=== PATIENT | female | born 1930 | race Caucasian/White ===

== ENCOUNTER 2016-09-08 20:07 | Outpatient (CLI) ==
[2016-09-09 02:53] VITALS: BMI 20.4
== END 2016-09-08 20:08 | disposition home or self-care (01) ==
LOC: AMBL 20:07
PROVIDERS: ATTEND Emergency Medicine
DX: R50.9 Fever, unspecified (principal); R41.0 Disorientation, unspecified

== ENCOUNTER 2016-09-08 20:41 | Inpatient (IN) ==
[2016-09-08] MEDS ORDERED: MOTRIN PO STA (20:55)
--- NOTE | 2016-09-08 20:58 | ED.PDOC ---
General ED Provider: Dr. SCOTT PETERS Chief Complaint: Fever Stated Complaint: FEVER, COUGHING, CHANGE IN MENTAL STATUS, FAMILY IN THE ROOM WITH HER. Time Seen by Physician: 20:56 Mode of Arrival: Ambulance Information Source: Patient, Family, [facility], EMT Nursing and Triage Documentation Reviewed and Agree: Yes Miscellaneous Complaint Exam - Febrile Illness/Adult Complaint/Exam Symptoms Are: Still present Timing: Constant Episodes Lasting: Days Initial Severity: Moderate Current Severity: Severe Alleviating: Reports: None Associated Signs and Symptoms: Denies: Headache, Fluid intake, Short of air, Cough, Sore throat, Nausea, Vomiting, Chills, Diaphoresis, Dysuria, Arthralgia, Stiff neck, Myalgia, Rash, Altered mental status Pseudomonas Risk Factors: Reports: None Serious Bacterial Infection Risk Factors: Reports: None Current Antibiotic Use: No Related Surgical History: None Differential Diagnoses: Pneumonia, Pyelonephritis, Sepsis, Viremia Review of Systems - Review Of Systems Constitutional: Reports: Fever, Malaise Eyes: Reports: No symptoms Ears, Nose, Mouth, Throat: Reports: No symptoms Respiratory: Reports: No symptoms Cardiac: Reports: No symptoms GI: Reports: No symptoms : Reports: No symptoms Musculoskeletal: Reports: No symptoms Skin: Reports: No symptoms Neurological: Reports: Weakness Endocrine: Reports: No symptoms Hematologic/Lymphatic: Reports: No symptoms All Other Systems: Reviewed and Negative Past Medical History - Past Medical History Previously Healthy: No Endocrine: Reports: Hypothyroid Cardiovascular: Reports: None Respiratory: Reports: None Hematological: Reports: Anemia Gastrointestinal: Reports: PUD, GERD Genitourinary: Reports: None Neuro/Psych: Reports: CVA, Anxiety, Dementia Musculoskeletal: Reports: Arthritis Cancer: Reports: None Last Menstrual Period: NA - Surgical History General Surgical History: Reports: None - Family History Family History: Reports: None - Social History Smoking Status: Never smoker Hx Substance Use: No Alcohol Screening: None - Immunizations Tetanus Shot up to Date: No (UNKNOWN) Physical Exam - Physical Exam Appearance: Ill-appearing Ill-appearing: Moderate Eyes: EOMI, Conjunctiva clear ENT: Ears normal, Nose normal, Oropharynx normal Respiratory: Airway patent, Breath sounds clear, Breath sounds equal, Respirations nonlabored Cardiovascular: RRR, Pulses normal, No rub, No murmur GI/: Soft, Nontender, No masses, Bowel sounds normal, No Organomegaly Musculoskeletal: Normal strength, ROM intact, No edema, No calf tenderness Skin: Warm, Dry, Normal color Neurological: Alert, Disoriented Psychiatric: Affect appropriate, Mood appropriate Interpretation - Radiology Interpretation Radiology Interpretation By: Radiologist Radiology Results: Negative Exam Interpreted: CT Scan Critical Care Note - Critical Care Note Total Time (mins): 0 Course - Course Hematology/Chemistry: 09/08/16 21:00 09/08/16 21:00 Orders, Labs, Meds: Lab Review 09/08/16 09/08/16 09/08/16 21:00 21:05 21:30 WBC 12.06 H RBC 4.01 L Hgb 12.7 Hct 38.8 MCV 96.8 MCH 31.7 H MCHC 32.7 RDW Coeff of Roshan 13.0 Plt Count 124 L Immature Gran % (Auto) 0.2 Neut % (Auto) 78.4 Lymph % (Auto) 16.8 [place] % (Auto) 4.1 Eos % (Auto) 0.3 Baso % (Auto) 0.2 Immature Gran # (Auto) 0.0 Neut # 9.4 H Lymph # 2.0 [place] # 0.5 Eos # 0.0 Baso # 0.0 Sodium 142 Potassium 3.8 Chloride 109 H Carbon Dioxide 22 L Anion Gap 14.8 BUN 22 H Creatinine 1.05 Estimated GFR (MDRD) 50.00 BUN/Creatinine Ratio 20.95 Glucose 115 Lactic Acid 18.5 Calcium 8.7 Total Bilirubin 0.43 AST 31 ALT 19 Alkaline Phosphatase 14 L Total Protein 6.8 Albumin 3.5 Globulin 3.3 Albumin/Globulin Ratio 1.06 Procalcitonin 2.94 Urine Color Yellow Urine Clarity Clear Urine pH 5.5 Ur Specific [place] 1.015 Urine Protein Trace Urine Glucose (UA) Negative Urine Ketones Negative Urine Blood 2+ Urine Nitrite Positive Urine Bilirubin Negative Urine Urobilinogen 1.0 Ur Leukocyte Esterase Trace Urine Microscopic WBC 20-30 Ur Squamous Epith Cells Not present Urine Bacteria 4+ Influenza A (Rapid) Negative Influenza B (Rapid) Negative Orders Category Date Time Status Saline Lock [ED IV/MEDIPORT/POWERPORT] .ONCE EMERGENCY 09/08/16 20:50 Active BLOOD CULTURE Stat LAB 09/08/16 21:00 Received CBC W/ AUTO DIFF Stat LAB 09/08/16 21:00 Completed COMPREHENSIVE METABOLIC PANEL Stat LAB 09/08/16 21:00 Completed LACTIC ACID Stat LAB 09/08/16 21:00 Completed PROCALCITONIN Stat LAB 09/08/16 21:00 Completed RAPID FLU A/B Stat LAB 09/08/16 21:05 Completed URINALYSIS C & S IF INDICATED Stat LAB 09/08/16 21:30 Completed URINE CULTURE Stat LAB 09/08/16 21:30 Received 0.9 % Sodium Chloride [Saline Flush] MEDS 09/08/16 20:50 Ordered 1 syr IVF PRN PRN Ibuprofen [Motrin] MEDS 09/08/16 20:55 Discontinued 600 mg PO ONCE STA Imipenem/Cilastatin Sodium [Primaxin] 500 mg MEDS 09/08/16 21:54 Active 0.9 % Sodium Chloride [Sodium Chloride] 100 ml IV ONCE Sodium Chloride 0.9% [Sodium Chloride] 1,000 ml MEDS 09/08/16 22:00 Ordered IV 50 mls/hr CT CHEST W/O CONTRAST Stat RADS 09/08/16 20:[address] HEAD W/O CONTRAST Stat RADS 09/08/16 20:50 Completed Medications Generic Name Dose Route Start Last Admin Trade Name Freq PRN Reason Stop Dose Admin Imipenem/Cilastatin Sodium 500 100 mls @ 100 mls/hr 09/08/16 21:54 mg/ Sodium Chloride IV 09/08/16 22:53 ONCE STA Sodium Chloride 1,000 mls @ 50 mls/hr 09/08/16 22:00 Sodium Chloride IV .Q20H WALTER Sodium Chloride 1 syr 09/08/16 20:50 Saline Flush IVF PRN PRN To flush IV Discontinued Medications Generic Name Dose Route Start Last Admin Trade Name Freq PRN Reason Stop Dose Admin Ibuprofen 600 mg 09/08/16 20:55 09/08/16 22:04 Motrin PO 09/08/16 20:56 600 mg ONCE STA Administration Vital Signs: Temp Pulse Resp BP Pulse Ox 09/08/16 20:42 104 F H 98 H 28 H 108/45 L 95 Departure - Departure Time of Disposition: 22:14 Disposition: ADMITTED INPATIENT Discharge Problem: UTI (urinary tract infection) Qualifiers: Urinary tract infection type: acute cystitis Hematuria presence: with hematuria Qualifier Code: (N30.01) Acute cystitis with hematuria Altered mental state Qualifiers: Altered mental status type: disorientation Qualifier Code: (R41.0) Disorientation, unspecified Sepsis Qualifiers: Sepsis type: sepsis due to unspecified organism Qualifier Code: (A41.9) Sepsis , unspecified organism Instructions: Urinary Tract Infection in Women (ED) Condition: Stable Pt referred to PMD for follow-up: No Allergies/Adverse Reactions: Allergies NSAIDS (Non-Steroidal Anti-Inflamma Adverse Reaction (Verified 03/01/13 21:55) Home Medications: Ambulatory Orders Acetaminophen [Mapap] 650 mg PO Q4H PRN 03/01/13 Levothyroxine Sodium [Synthroid] 100 mcg PO DAILY 03/01/13 Lorazepam [Ativan] 0.5 mg PO DAILY 03/01/13 Lorazepam [Ativan] 1 mg PO BID 09/08/16 Magnesium Hydroxide [Milk of Magnesia] 30 ml PO Q72HR PRN 09/08/16 Disposition Discussed With: Family
[2016-09-08 21:12] LABS: BASOPHILS % (AUTO) 0.2 % (0.0-3.0); EOSINOPHILS % (AUTO) 0.3 % (0.0-7.0); HEMATOCRIT 38.8 % (37.0-47.0); HEMOGLOBIN 12.7 g/dl (12.0-16.0); IMMATURE GRANULOCYTE % (AUTO) 0.2 % (0.0-5.0); LYMPHOCYTES % (AUTO) 16.8 (10.0-50.0); MEAN CORPUSCULAR HEMOGLOBIN 31.7 pg (27.0-31.0); MEAN CORPUSCULAR HGB CONC 32.7 (31.8-35.4); MEAN CORPUSCULAR VOLUME 96.8 fl (81.0-99.0); MONOCYTES # (AUTO) 0.5 K/uL (0.4-2.0); MONOCYTES % (AUTO) 4.1 (0-10); NEUTROPHILS # (AUTO) 9.4 K/ul (2.0-6.9); NEUTROPHILS % (AUTO) 78.4; PLATELET COUNT 124 10^3/uL (140-440); RED BLOOD COUNT 4.01 10^6/ul (4.20-5.40); WHITE BLOOD COUNT 12.06 K/ul (4.6-10.2)
[2016-09-08 21:33] LABS: ALBUMIN 3.5 g/dL (3.4-5.0); ALBUMIN/GLOBULIN RATIO 1.06; ANION GAP 14.8; BILIRUBIN,TOTAL 0.43 mg/dL (0.00-1.20); BUN/CREATININE RATIO 20.95; CALCIUM 8.7 mg/dL (8.2-10.2); CREATININE 1.05 mg/dL (0.60-1.30); POTASSIUM 3.8 mmol/L (3.5-5.10); TOTAL PROTEIN 6.8 g/dL (5.8-8.1)
[2016-09-08 21:34] LABS: FLU INTERNAL QC INTERNAL QC VALID; RAPID FLU A NEGATIVE (NEGATIVE); RAPID FLU B NEGATIVE (NEGATIVE)
[2016-09-08 21:40] LABS: BILIRUBIN,URINE Negative (NEGATIVE); KETONES,URINE Negative (NEGATIVE); LEUKOCYTE ESTERASE ,URINE Trace (NEGATIVE); NITRITE,URINE Positive (NEGATIVE); PH,URINE 5.5 (5-9); PROTEIN,URINE Trace (NEGATIVE); URINE, BLOOD 2+ (NEGATIVE)
--- NOTE | 2016-09-08 21:44 | CT ---
Exam: CT of the chest without contrast History: Fever Technique: [address] of the chest without intravascular contrast FINDINGS: Granulomatous calcifications bilaterally. No infiltrative opacities, suspicious nodules or masses. Compressive atelectasis along the border of the large hiatus hernia. Atherosclerotic ca lcification of the aorta without aneurysm. No pathologic lymph node enlargement or abundance of med iastinum. No acute findings of the chest wall soft tissues or bony thorax. Large hiatus hernia is present with intrathoracic stomach. No acute findings of the upper abdomen. Impression: 1. Compressive atelectasis along the border of the large hiatus hernia. No evidence of pneumonitis .
--- NOTE | 2016-09-08 21:44 | CT ---
EXAM: CT scan brain without contrast HISTORY: Altered mental status COMPARISON: None. FINDINGS: Contiguous axial images obtained from the skull base to the convexities without contrast utilizing 5-mm collimation. Sagittal and coronal reconstructions were imaged and reviewed. The jn tricles and CSF spaces are prominent compatible with age appropriate atrophy. There is periventricu lar hypodensity noted compatible with chronic microvascular disease. Atherosclerotic changes are se en involving the bilateral cavernous internal carotid arteries. Mucoperiosteal thickening is seen i n the bilateral maxillary sinuses right greater than left. Several air cells are opacified in the e thmoid sinus. IMPRESSION: Age appropriate atrophy with chronic microvascular disease. Benign sinus disease.
[2016-09-08 21:46] LABS: ADD URINE MICROSCOPIC YES; BACTERIA,URINE 4+ (NOT PRESENT)
[2016-09-08] MEDS ORDERED: PRIMAXIN 500 MG in SODIUM CHLORIDE 100 ML IV STA (21:54)
[2016-09-08] MEDS ORDERED: SODIUM CHLORIDE 1,000 ML IV SCH (22:00)
[2016-09-08] MEDS ORDERED: TYLENOL PO PRN (22:14)
[2016-09-08] MEDS: SODIUM CHLORIDE 250 ML IV SCH ×2 (23:40→23:58)
[2016-09-09] MEDS ORDERED: SODIUM CHLORIDE 250 ML IV SCH (00:25)
[2016-09-09 02:53] VITALS: BMI 20.4
[2016-09-09] MEDS: SODIUM CHLORIDE 250 ML IV SCH ×3 (03:07→06:17)
[2016-09-09] MEDS ORDERED: PRIMAXIN 500 MG in SODIUM CHLORIDE 100 ML IV SCH (05:00)
[2016-09-09] MEDS: SYNTHROID PO SCH (05:31)
[2016-09-09 06:13] LABS: BASOPHILS % (AUTO) 0.2 % (0.0-3.0); EOSINOPHILS # (AUTO) 0.1 K/ul (0.0-0.7); EOSINOPHILS % (AUTO) 0.7 % (0.0-7.0); HEMATOCRIT 35.6 % (37.0-47.0); HEMOGLOBIN 11.7 g/dl (12.0-16.0); LYMPHOCYTES # (AUTO) 2.5 K/uL (0.60-3.4); LYMPHOCYTES % (AUTO) 14.8 (10.0-50.0); MEAN CORPUSCULAR HGB CONC 32.9 (31.8-35.4); MEAN CORPUSCULAR VOLUME 97.3 fl (81.0-99.0); MONOCYTES # (AUTO) 0.7 K/uL (0.4-2.0); MONOCYTES % (AUTO) 4.4 (0-10); NEUTROPHILS # (AUTO) 13.2 K/ul (2.0-6.9); NEUTROPHILS % (AUTO) 78.9; PLATELET COUNT 116 10^3/uL (140-440); RED BLOOD COUNT 3.66 10^6/ul (4.20-5.40); WHITE BLOOD COUNT 16.73 K/ul (4.6-10.2)
[2016-09-09 07:22] LABS: ALBUMIN 2.8 g/dL (3.4-5.0); ALBUMIN/GLOBULIN RATIO 0.97; ANION GAP 11.7; BILIRUBIN,TOTAL 0.53 mg/dL (0.00-1.20); BUN/CREATININE RATIO 21.42; CALCIUM 7.9 mg/dL (8.2-10.2); CREATININE 0.98 mg/dL (0.60-1.30); POTASSIUM 3.7 mmol/L (3.5-5.10); TOTAL PROTEIN 5.7 g/dL (5.8-8.1)
[2016-09-09 07:23] LABS: CREATINE KINASE MB 1.3 ng/ml (0.0-3.6); TROPONIN I 0.016 ng/ml (0.0000-0.4000)
[2016-09-09] MEDS: SODIUM CHLORIDE 1,000 ML IV SCH (07:53)
[2016-09-09] MEDS: ATIVAN PO SCH ×3 (09:00→20:03)
[2016-09-09] MEDS ORDERED: ATIVAN PO SCH (09:00)
[2016-09-09] MEDS ORDERED: SYNTHROID PO SCH (09:00)
[2016-09-09] MEDS: VANCOMYCIN 1 GM in SODIUM CHLORIDE 250 ML IV SCH (09:19)
--- NOTE | 2016-09-09 10:01 | PCM.PROG ---
Attending Provider: ATTENDING PROVIDER: Dr. SCOTT PETERS DATE OF SERVICE: 09/09/16 SUBJECTIVE: This 86 year old WHITE/ F was hospitalized 09/08/16. The patient is admitted with urosepsis and change in mental status from [facility]. She is on Primaxin IV, has been hypotensive all night. She had only 400 mL urine output. Now, she is more awake and alert, has baseline confusion from dementia. The patient's family is in the room. REVIEW OF SYSTEMS: CONSTITUTIONAL: No fever, no chills. ENDOCRINE: No weight loss or weight gain. HEENT: No sinus drainage, no sore throat. CVS: No angina symptoms. No CHF symptoms. No palpitations. No atypical chest pain for CAD. No shortness of breath. RESPIRATORY: No cough, no hemoptysis. GI: No melena. No abdominal pain. No nausea, no vomiting. : No hematuria. No polyuria. SKIN: No rash. No wounds. MUSCULOSKELETAL: No pain. COOLER OPERATOR: No blackout, no dizziness. No headache. No double vision. PSYCHIATRIC: Not anxious; no depression. No suicidal thoughts. No homicidal thoughts. PHYSICAL EXAMINATION: GENERAL: Cachetic appearing lady lying in bed in no distress. VITAL SIGNS: Temperature 97.8 F, Pulse 68, Respiratory Rate 20, BP 76/45, Pulse Ox 95% HEENT: Normocephalic, atraumatic. Mucosa is dry, pallor positive. NECK: No JVP, no carotid bruit. No lymphadenopathy. CARDIAC: S1, S2, no S3. No murmur, gallop or regurgitation. LUNGS: Decreased entry. Clear to auscultation. ABDOMEN: Soft, non-tender. Bowel sounds active. No rigidity, guarding or CVA tenderness. EXTREMITIES: No clubbing, cyanosis or edema. NEUROLOGIC: Awake, alert, not oriented. LYMPHATIC: No palpable lymph nodes SKIN: Not dry. Intact. MUSCULOSKELETAL: No joint swelling. LAB REVIEW: 09/09/16 05:50 09/09/16 05:50 09/09/16 05:50: WBC 16.73 H, RBC 3.66 L, Hgb 11.7 L, Hct 35.6 L, MCV 97.3, MCH 32.0 H, MCHC 32.9, RDW Coeff of Roshan 13.2, Plt Count 116 L, Immature Gran % (Auto ) 1.0, Neut % (Auto) 78.9, Lymph % (Auto) 14.8, [place] % (Auto) 4.4, Eos % (Auto) 0.7, Baso % (Auto) 0.2, Immature Gran # (Auto) 0.2, Neut # 13.2 H, Lymph # 2.5, [place] # 0.7, Eos # 0.1, Baso # 0.0, Sodium 144, Potassium 3.7, Chloride 114 H, Carbon Dioxide 22 L, Anion Gap 11.7, BUN 21 H, Creatinine 0.98, Estimated GFR ( MDRD) 54.00, BUN/Creatinine Ratio 21.42, Glucose 118 H, Calcium 7.9 L, Total Bilirubin 0.53, AST 26, ALT 15, Alkaline Phosphatase 13 L, Total Creatine Kinase 116, CK-MB (CK-2) 1.3, CK-MB (CK-2) % 1.43427, Troponin I 0.0160, Total Protein 5.7 L, Albumin 2.8 L, Globulin 2.9, Albumin/Globulin Ratio 0.97 ASSESSMENT: 1. Urosepsis 2. Septic shock 3. Anemia 4. Alzheimer's dementia 5. Hypertension 6. Dyslipidemia 7. History of GI bleed PLAN: 1. Vancomycin 1 gm IV 2. Increase IV fluids to 75 mL 3. Continue Primaxin Plan and coordination of the patient's care discussed in the presence of Blocking Machine Operator Second and nurse. CONDITION: Guarded SCRIBED BY: KERLINE ESTRELLA, Manager Msw scribed while in presence of service performed by Dr. SCOTT PETERS on 09/09/16 ([id number])
[2016-09-09 13:07] LABS: TROPONIN I 0.015 ng/ml (0.0000-0.4000)
[2016-09-09 13:08] LABS: CREATINE KINASE MB 1.7 ng/ml (0.0-3.6)
[2016-09-09] MEDS: PRIMAXIN 250 MG in SODIUM CHLORIDE 100 ML IV SCH ×2 (13:25→23:25)
[2016-09-10] MEDS: SODIUM CHLORIDE 1,000 ML IV SCH ×2 (02:45→23:19)
[2016-09-10] MEDS: PRIMAXIN 250 MG in SODIUM CHLORIDE 100 ML IV SCH ×3 (05:42→20:04)
[2016-09-10] MEDS: SYNTHROID PO SCH (05:42)
[2016-09-10 07:23] LABS: BASOPHILS % (AUTO) 0.1 % (0.0-3.0); EOSINOPHILS # (AUTO) 0.3 K/ul (0.0-0.7); EOSINOPHILS % (AUTO) 2.1 % (0.0-7.0); HEMATOCRIT 34.6 % (37.0-47.0); HEMOGLOBIN 11.4 g/dl (12.0-16.0); IMMATURE GRANULOCYTE % (AUTO) 0.3 % (0.0-5.0); LYMPHOCYTES # (AUTO) 3.5 K/uL (0.60-3.4); MEAN CORPUSCULAR HEMOGLOBIN 31.6 pg (27.0-31.0); MEAN CORPUSCULAR HGB CONC 32.9 (31.8-35.4); MEAN CORPUSCULAR VOLUME 95.8 fl (81.0-99.0); MONOCYTES # (AUTO) 0.8 K/uL (0.4-2.0); MONOCYTES % (AUTO) 5.8 (0-10); NEUTROPHILS # (AUTO) 9.8 K/ul (2.0-6.9); NEUTROPHILS % (AUTO) 67.7; PLATELET COUNT 121 10^3/uL (140-440); RED BLOOD COUNT 3.61 10^6/ul (4.20-5.40); WHITE BLOOD COUNT 14.47 K/ul (4.6-10.2)
[2016-09-10 07:51] LABS: ALBUMIN 2.8 g/dL (3.4-5.0); ALBUMIN/GLOBULIN RATIO 0.97; ANION GAP 9.7; BILIRUBIN,TOTAL 0.58 mg/dL (0.00-1.20); BUN/CREATININE RATIO 17.33; CALCIUM 8.2 mg/dL (8.2-10.2); CREATININE 0.75 mg/dL (0.60-1.30); POTASSIUM 3.7 mmol/L (3.5-5.10); TOTAL PROTEIN 5.7 g/dL (5.8-8.1)
[2016-09-10] MEDS: VANCOMYCIN 1 GM in SODIUM CHLORIDE 250 ML IV SCH (08:04)
[2016-09-10] MEDS: ATIVAN PO SCH ×3 (08:05→20:04)
[2016-09-10] MEDS: DUONEB NEB SCH ×2 (19:25→23:45)
[2016-09-11] MEDS: PRIMAXIN 250 MG in SODIUM CHLORIDE 100 ML IV SCH ×3 (04:01→20:21)
[2016-09-11] MEDS: DUONEB NEB SCH ×4 (04:53→23:33)
[2016-09-11 04:56] LABS: BASOPHILS % (AUTO) 0.2 % (0.0-3.0); EOSINOPHILS # (AUTO) 0.2 K/ul (0.0-0.7); EOSINOPHILS % (AUTO) 1.3 % (0.0-7.0); HEMATOCRIT 34.1 % (37.0-47.0); HEMOGLOBIN 11.3 g/dl (12.0-16.0); IMMATURE GRANULOCYTE % (AUTO) 0.5 % (0.0-5.0); LYMPHOCYTES # (AUTO) 2.7 K/uL (0.60-3.4); LYMPHOCYTES % (AUTO) 21.8 (10.0-50.0); MEAN CORPUSCULAR HEMOGLOBIN 31.7 pg (27.0-31.0); MEAN CORPUSCULAR HGB CONC 33.1 (31.8-35.4); MEAN CORPUSCULAR VOLUME 95.5 fl (81.0-99.0); MONOCYTES # (AUTO) 0.8 K/uL (0.4-2.0); MONOCYTES % (AUTO) 6.7 (0-10); NEUTROPHILS # (AUTO) 8.5 K/ul (2.0-6.9); NEUTROPHILS % (AUTO) 69.5; PLATELET COUNT 142 10^3/uL (140-440); RED BLOOD COUNT 3.57 10^6/ul (4.20-5.40); WHITE BLOOD COUNT 12.18 K/ul (4.6-10.2)
[2016-09-11 05:21] LABS: ALBUMIN 2.8 g/dL (3.4-5.0); ALBUMIN/GLOBULIN RATIO 0.9; ANION GAP 9.5; BILIRUBIN,TOTAL 0.62 mg/dL (0.00-1.20); BUN/CREATININE RATIO 19.48; CALCIUM 8.3 mg/dL (8.2-10.2); CREATININE 0.77 mg/dL (0.60-1.30); POTASSIUM 3.5 mmol/L (3.5-5.10); TOTAL PROTEIN 5.9 g/dL (5.8-8.1)
[2016-09-11] MEDS: SYNTHROID PO SCH (05:30)
[2016-09-11] MEDS: VANCOMYCIN 1 GM in SODIUM CHLORIDE 250 ML IV SCH (08:07)
[2016-09-11] MEDS: ATIVAN PO SCH ×3 (08:09→20:21)
[2016-09-11] MEDS ORDERED: KEFLEX PO STA (23:02)
[2016-09-12 04:56] LABS: BASOPHILS % (AUTO) 0.3 % (0.0-3.0); EOSINOPHILS # (AUTO) 0.2 K/ul (0.0-0.7); EOSINOPHILS % (AUTO) 1.8 % (0.0-7.0); HEMATOCRIT 35.3 % (37.0-47.0); HEMOGLOBIN 11.6 g/dl (12.0-16.0); IMMATURE GRANULOCYTE % (AUTO) 0.6 % (0.0-5.0); LYMPHOCYTES # (AUTO) 2.8 K/uL (0.60-3.4); LYMPHOCYTES % (AUTO) 26.9 (10.0-50.0); MEAN CORPUSCULAR HEMOGLOBIN 31.3 pg (27.0-31.0); MEAN CORPUSCULAR HGB CONC 32.9 (31.8-35.4); MEAN CORPUSCULAR VOLUME 95.1 fl (81.0-99.0); MONOCYTES # (AUTO) 0.9 K/uL (0.4-2.0); MONOCYTES % (AUTO) 9.1 (0-10); NEUTROPHILS # (AUTO) 6.3 K/ul (2.0-6.9); NEUTROPHILS % (AUTO) 61.3; PLATELET COUNT 171 10^3/uL (140-440); RED BLOOD COUNT 3.71 10^6/ul (4.20-5.40); WHITE BLOOD COUNT 10.33 K/ul (4.6-10.2)
[2016-09-12 05:20] LABS: ALBUMIN 2.9 g/dL (3.4-5.0); ALBUMIN/GLOBULIN RATIO 1.04; ANION GAP 11.6; BILIRUBIN,TOTAL 0.73 mg/dL (0.00-1.20); BUN/CREATININE RATIO 22.97; CALCIUM 8.7 mg/dL (8.2-10.2); CREATININE 0.74 mg/dL (0.60-1.30); POTASSIUM 3.6 mmol/L (3.5-5.10); TOTAL PROTEIN 5.7 g/dL (5.8-8.1)
[2016-09-12] MEDS: SYNTHROID PO SCH (05:48)
[2016-09-12] MEDS: DUONEB NEB SCH ×2 (05:55→11:18)
[2016-09-12 06:13] VITALS: BP 129/77; TEMP 97.8
[2016-09-12] MEDS: KEFLEX PO SCH ×2 (08:44→10:20)
[2016-09-12] MEDS: ATIVAN PO SCH ×2 (08:44→09:00)
--- NOTE | 2016-09-12 08:50 | CM.DICTOOL ---
ADMISSION: 09/08/16 22:35 DISCHARGE: 09/12/16 DISCHARGE TO [facility] DATE OF SERVICE: 09/12/16 FINAL DIAGNOSIS UROSEPSIS - (E-COLI) ACUTE MENTAL STATUS CHANGES FEVER/COUGH HYPOTHYROIDISM CVA ANXIETY ANEMIA GASTRIC ULCER GENERALIZED ARTHRITIS OSTEOARTHRITIS ALZHEIMER'S TYPE DEMENTIA NEVER SMOKER LAST VITALS Temp Pulse Resp BP Pulse Ox 97.8 F 69 16 129/77 95 09/12/16 06:00 09/12/16 06:00 09/12/16 06:00 09/12/16 06:00 09/12/16 06:00 ACTIVE MEDICATIONS Acetaminophen (Tylenol) 650 mg PO Q4H PRN PRN Reason: Mild Pain Levothyroxine Sodium (Synthroid) 100 mcg PO QDAC [facility] Last Admin: 09/12/16 05:48 Dose: 100 mcg Lorazepam (Ativan) 1 mg PO BID [facility] Last Admin: 09/11/16 20:21 Dose: 1 mg Lorazepam (Ativan) 0.5 mg PO BEDTIME [facility] Last Admin: 09/11/16 20:21 Dose: 0.5 mg Magnesium Hydroxide (Milk of Magnesia) 30 ml PO Q72H PRN Constipation ALLERGIES NSAIDS (Non-Steroidal Anti-Inflamma Adverse Reaction (Verified 03/01/13 21:55) NEW PRESCRIPTIONS: MACRODANTIN 100 MG PO BID X 7 (SEVEN) DAYS SMOKING: NONSMOKER LAB REVIEW: 09/12/16 04:44 09/12/16 04:44 09/12/16 04:44: WBC 10.33 H, RBC 3.71 L, Hgb 11.6 L, Hct 35.3 L, MCV 95.1, MCH 31.3 H, MCHC 32.9, RDW Coeff of Roshan 12.7, Plt Count 171, Immature Gran % (Auto) 0.6, Neut % (Auto) 61.3, Lymph % (Auto) 26.9, [place] % (Auto) 9.1, Eos % (Auto) 1.8, Baso % (Auto) 0.3, Immature Gran # (Auto) 0.1, Neut # 6.3, Lymph # 2.8, [place] # 0.9, Eos # 0.2, Baso # 0.0, Sodium 144, Potassium 3.6, Chloride 112 H, Carbon Dioxide 24, Anion Gap 11.6, BUN 17, Creatinine 0.74, Estimated GFR (MDRD ) 74.00, BUN/Creatinine Ratio 22.97, Glucose 94, Calcium 8.7, Total Bilirubin 0.73, AST 23, ALT 15, Alkaline Phosphatase 15 L, Total Protein 5.7 L, Albumin 2.9 L, Globulin 2.8, Albumin/Globulin Ratio 1.04 PLAN: DISCHARGE BACK TO [facility] TODAY DR. PETERS WILL FOLLOW THE PATIENT DURING USUAL DETENTION ROUNDS IN APPROX 1 WEEK RESUME PRIOR DETENTION MEDICATIONS NEW MEDICATIONS: MACRODANTIN 100 MG PO BID X 7 (SEVEN) DAYS DIET: [place], REGULAR TEXTURE AND REGULAR CONSISTENCE TOLERATED INSTRUMENTATION AND CONTROL TECHNICIAN PLEASE CONSULT TO PROVIDE OPTIMAL NUTRITIONAL NEEDS ACTIVITY: MAY PARTICIPATE IN DETENTION ACTIVITY PROGRAM TOLERATED PT/OT/SPEECH PLEASE EVALUATE AND TREAT INDICATED UP TO DINING ROOM FOR MEALS V/S DAILY CBC WITH DIFF AND CMP IN ONE WEEK, THEN Q 6 MONTHS TSH AND FREE T4 Q 6 MONTHS SUMMARY: THE PATIENT IS ALERT AND ORIENTED TO PERSON ONLY. SHE CURRENTLY RESIDES AT A LOCAL DETENTION, [facility]. SHE AND HER FAMILY DESIRE FOR HER TO RETURN THERE AT DISCHARGE. SHE IS ABLE TO FEED HERSELF, BUT REQUIRES ASSISTANCE FOR OTHER ADL'S. SHE IS INCONTINENT OF BOTH URINE AND STOOL. SHE HAS NO DECUBITUS ULCERS PRESENT AT DISCHARGE. HER HYDRATION STATUS IS IMPROVED FROM THE ADMISSION ASSESSMENT. BOTH THE PATIENT AND HER FAMILY ARE AWARE AND AGREEABLE FOR TODAY'S DISCHARGE PLANS. SCOTT PETERS M.D.
--- NOTE | 2016-09-12 12:51 | PCM.PROG ---
Attending Provider: ATTENDING PROVIDER: Dr. SCOTT PETERS DATE OF SERVICE: 09/12/16 SUBJECTIVE: This 86 year old WHITE/ F was hospitalized 09/08/16. The patient has been up and about walking and doing fine. No fever. Urine was positive for E. coli. The patient has some confusion from dementia which is stable. REVIEW OF SYSTEMS: CONSTITUTIONAL: No fever, no chills. ENDOCRINE: No weight loss or weight gain. HEENT: No sinus drainage, no sore throat. CVS: No angina symptoms. No CHF symptoms. No palpitations. No atypical chest pain for CAD. No shortness of breath. RESPIRATORY: No cough, no hemoptysis. GI: No melena. No abdominal pain. No nausea, no vomiting. : No hematuria. No polyuria. SKIN: No rash. No wounds. MUSCULOSKELETAL: No pain. MEAT GRADING MACHINE OPERATOR: No blackout, no dizziness. No headache. No double vision. PSYCHIATRIC: Not anxious; no depression. No suicidal thoughts. No homicidal thoughts. PHYSICAL EXAMINATION: GENERAL: Cachetic appearing but not in any distress. Lying in bed in no distress. VITAL SIGNS: Temperature 97.8 F, Pulse 69, Respiratory Rate 16, BP 129/77, Pulse Ox 95% HEENT: Normocephalic, atraumatic. Mucosa is dry, pallor positive. NECK: No JVP, no carotid bruit. No lymphadenopathy. CARDIAC: S1, S2, no S3. No murmur, gallop or regurgitation. LUNGS: Decreased entry. Clear to auscultation. ABDOMEN: Soft, non-tender. Bowel sounds active. No rigidity, guarding or CVA tenderness. EXTREMITIES: No clubbing, cyanosis or edema. NEUROLOGIC: Awake, alert with some confusion. LYMPHATIC: No palpable lymph nodes SKIN: Not dry. Intact. MUSCULOSKELETAL: No joint swelling. LAB REVIEW: 09/12/16 04:44 09/12/16 04:44 09/12/16 04:44: WBC 10.33 H, RBC 3.71 L, Hgb 11.6 L, Hct 35.3 L, MCV 95.1, MCH 31.3 H, MCHC 32.9, RDW Coeff of Roshan 12.7, Plt Count 171, Immature Gran % (Auto) 0.6, Neut % (Auto) 61.3, Lymph % (Auto) 26.9, [place] % (Auto) 9.1, Eos % (Auto) 1.8, Baso % (Auto) 0.3, Immature Gran # (Auto) 0.1, Neut # 6.3, Lymph # 2.8, [place] # 0.9, Eos # 0.2, Baso # 0.0, Sodium 144, Potassium 3.6, Chloride 112 H, Carbon Dioxide 24, Anion Gap 11.6, BUN 17, Creatinine 0.74, Estimated GFR (MDRD ) 74.00, BUN/Creatinine Ratio 22.97, Glucose 94, Calcium 8.7, Total Bilirubin 0.73, AST 23, ALT 15, Alkaline Phosphatase 15 L, Total Protein 5.7 L, Albumin 2.9 L, Globulin 2.8, Albumin/Globulin Ratio 1.04 ASSESSMENT: 1. Urosepsis, resolved, organism E. coli 2. Septic shock, resolved 3. Anemia 4. Alzheimer's dementia 5. Hypertension 6. Dyslipidemia 7. History of GI bleed PLAN: 1. Discharge to [place] under the care of Dr. Irwin 2. Increase hydration 3. Probiotics for one month 4. The patient may participate in [facility] activities 5. Resume medications 6. CBC, CMP in one week then every 3 months Plan and coordination of the patient's care discussed in the presence of Straight Knife Machine Cutter and nurse. CONDITION: Stable SCRIBED BY: KERLINE ESTRELLA, Construction Pit Worker scribed while in presence of service performed by Dr. SCOTT PETERS on 09/12/16 ([id number])
--- NOTE | 2016-09-13 14:12 | PN ---
DATE OF SERVICE: 09/10/16 SUBJECTIVE: This is an 86-year-old female admitted with urinary tract infection, change in mental status. The patient had a lot of questions and all questions were answered. REVIEW OF SYSTEMS: CONSTITUTIONAL: No fever, no chills. HEENT: Normal. ENDOCRINE: No weight gain, no weight loss. CVS: No angina symptoms. No CHF symptoms. No palpitations. No atypical chest pain for CAD. No shortness of breath. No PND, no orthopnea. RESPIRATORY: No cough, no hemoptysis. GI: No nausea, no vomiting. No abdominal pain. : No hematuria. No polyuria. MUSCULOSKELETAL:. No joint swelling. PSYCHIATRIC: Not anxious. No depression. No suicidal thoughts. No homicidal thoughts. SKIN: Intact. No rash. PHYSICAL EXAMINATION: V/S: BP 87/62, respiratory rate 20, heart rate 78, temperature 98.1. GENERAL: HEENT: Normocephalic, atraumatic. Mucosa dry. Pallor positive. No icterus. NECK: Supple. No JVD, no carotid bruit. No lymphadenopathy. LUNGS: Decreased and clear to auscultation. No rales or rhonchi. HEART: S1, S2 normal. No murmur, gallop or regurgitation. ABDOMEN: Soft, nontender. Bowel sounds active. No rigidity. No rebound or guarding. No CVA tenderness. EXTREMITIES: No clubbing, cyanosis or pedal edema. MUSCULOSKELETAL: No joint swelling. NEUROLOGIC: Awake, alert, oriented with confusion basline. No focal deficit. LYMPHATIC: No lymph nodes palpable. SKIN: Intact. LABS: White count 14.47, hemoglobin 11.4, hematocrit 34.6, platelet count 121. Sodium 144, potassium 3.7, chloride 115, bicarb 23, BUN 13, creatinine 0.75. ASSESSMENT: 1. URINARY TRACT INFECTION, E. COLI 2. CHANGE IN MENTAL STATUS 3. WORSENING OF CHANGE IN MENTAL STATUS SECONDARY TO UTI 4. HYPOTHYROIDISM 5. ANXIETY DISORDER 6. ALZHEIMER'S DEMENTIA PLAN: 1. Continue Primaxin 2. Duonebs 3. Vancomycin 4. IV fluids 5. Will follow with the patient in daily rounds ] TIME SPENT: More than 30 minutes MTDD
--- NOTE | 2016-09-14 13:04 | PN ---
DATE OF SERVICE: 09/11/16 SUBJECTIVE: The patient was admitted with the urosepsis and the lower lobe compressive atelectasis from the hiatal hernia. The patient has been doing fine. Because of her dementia the patient did have some deliriums and she pulled out the IV line two times otherwise she is sitting at the nurses station, more smiling but still has confusion. REVIEW OF SYSTEMS: CONSTITUTIONAL: No fever, no chills. HEENT: Normal. ENDOCRINE: No weight gain, no weight loss. CVS: No angina symptoms. No CHF symptoms. No palpitations. No atypical chest pain for CAD. No shortness of breath. No PND, no orthopnea. RESPIRATORY: No cough, no hemoptysis. GI: No nausea, no vomiting. No abdominal pain. : No hematuria. No polyuria. MUSCULOSKELETAL:. No joint swelling. PSYCHIATRIC: Not anxious. No depression. No suicidal thoughts. No homicidal thoughts. SKIN: Intact. No rash. PHYSICAL EXAMINATION: V/S: blood pressure 128/73, respiratory rate 16, heart rate 80 and temperature 98.4. HEENT: Normocephalic, atraumatic. Mucosa dry. Pallor positive. No icterus. NECK: Supple. No JVD, no carotid bruit. No lymphadenopathy. LUNGS: Bilateral entry is decreased and clear to auscultation. No rales or rhonchi. HEART: S1, S2 normal. No S3. No murmur, gallop or regurgitation. ABDOMEN: Soft, nontender. Bowel sounds active. No rigidity. No rebound or guarding. No CVA tenderness. EXTREMITIES: No clubbing, cyanosis or pedal edema. MUSCULOSKELETAL: No joint swelling. NEUROLOGIC: Awake, alert, not completely oriented to time, place and person. No focal deficit. LYMPHATIC: No lymph nodes palpable. SKIN: Intact. LABS: WBC 12.18, hgb 11.3, hct 34.1, plt count 142, sodium 141, potassium 3.5, chloride 112, bicarb 29, BUN 15 and creatinine 0.77. ASSESSMENT: 1. Urinary tract infection, e-coli 2. Segmental atelectasis per CAT scan 3. Hiatal hernia 4. Alzheimer's Dementia with delirium 5. History of CVA, no residual weakness 6. History of anemia with the peptic ulcer disease 7. Breast surgery for the cyst 8. Hysterectomy PLAN: 1. Stop the Vancomycin 2. Continue the Primaxin 3. Please get IV in again and continue the IV fluids 4. Out of bed to chair activity as tolerated. TIME SPENT: More than 30 minutes MTDD
--- NOTE | 2016-09-15 15:26 | DS ---
DATE OF SERVICE: 09/12/16 FINAL DIAGNOSIS: 1. URINARY TRACT INFECTION, ORGANISM E.COLI 2. ACUTE MENTAL STATUS CHANGE SECONDARY TO UROSEPSIS 3. HYPOTHYROIDISM 4. QUESTIONABLE COMPRESSIVE ATELECTASIS FROM THE HIATAL HERNIA PER CT SCAN 5. CEREBRAL VASCULAR ACCIDENT 6. ANXIETY 7. ANEMIA 8. HISTORY OF GASTRIC ULCER 9. GENERALIZED ARTHRITIS 10. OSTEOARTHRITIS 11. ALZHEIMER'S DEMENTIA VITAL SIGNS: At the time of discharge, blood pressure 129/77, respiratory rate 16, heart rate 69, temperature 97.8, pulse ox 95. DISCHARGE INSTRUCTIONS: 1. [facility] to the [facility]. 2. CBC, CMP in one week and then every 6 months. 3. The patient will be followed with Dr. Irwin. MEDICATIONS AT DISCHARGE: Continue the rest of the medications; Tylenol, Synthroid, Ativan, Milk of Magnesia. NEW PRESCRIPTIONS: Macrodantin 100 mg twice a day for seven days. DIET INSTRUCTIONS: Cardiac and healthy. ACTIVITY: As much as tolerated. Can participate in the [facility] activities. DISEASE SPECIFIC EDUCATION: Urinary tract infection, sepsis, change in mental status was discussed with the patient in detail. The patient verbalized understanding. HOSPITAL COURSE: Meghann Cardenas who was brought to the emergency room by the EMT with a change in mental status and fever. Her initial temperature was 104. The patient [place] blood [place] [id number] and the urine was bad. CT of the chest showed the compressive atelectasis. At that time, the patient is started on the Rocephin and Primaxin. Ibuprofen for the fever. IV fluids and continued on the home medications. With the given treatment, the patient was gradually feeling better. She was more awake and alert. Confusion was decreased and she was able to tolerate the diet and did not have any problems. Urine grew E.Coli, which was sensitive to the Macrodantin and so the patient was put on Macrodantin and discharged back to the [facility]. Time spent on the patient is more than 45 minutes today. AMAIRANI
--- NOTE | 2016-10-06 13:04 | HP ---
The patient was seen and examined in the emergency room and I agree with the assessment and treatment plan. AVERYD
== END 2016-09-12 15:25 | DRG 689 ==
LOC: ED 20:41 → MEDSURG B 22:35
PROVIDERS: ADMIT Emergency Medicine; ATTEND Emergency Medicine
DX: N30.01 Acute cystitis with hematuria (principal); A41.9 Sepsis, unspecified organism; J98.11 Atelectasis; F05 Delirium due to known physiological condition; B96.20 Unspecified Escherichia coli [E. coli] as the cause of diseases classified elsewhere; I95.9 Hypotension, unspecified; R50.9 Fever, unspecified; E03.9 Hypothyroidism, unspecified; K44.9 Diaphragmatic hernia without obstruction or gangrene; F41.9 Anxiety disorder, unspecified; D64.9 Anemia, unspecified; M15.9 Polyosteoarthritis, unspecified; G30.9 Alzheimer's disease, unspecified; F02.80 Dementia in other diseases classified elsewhere, unspecified severity, without behavioral disturbance, psychotic disturbance, mood disturbance, and anxiety; Z86.73 Personal history of transient ischemic attack (TIA), and cerebral infarction without residual deficits; Z16.11 Resistance to penicillins; Z79.899 Other long term (current) drug therapy
CPT/HCPCS: 36415; 80053; 81001; 82550; 82553; 83605; 84145; 84484; 85025; 87040; 87070; 87081; 87086; 87186; 87804; 93005; 93010; 94640; 96365; 97802; 99233; 99239; 99284

== ENCOUNTER 2016-09-28 09:26 | Outpatient (CLI) ==
[2016-09-28 10:08] LABS: BILIRUBIN,URINE Negative (NEGATIVE); KETONES,URINE Negative (NEGATIVE); LEUKOCYTE ESTERASE ,URINE Trace (NEGATIVE); NITRITE,URINE Negative (NEGATIVE); PH,URINE 5.5 (5-9); PROTEIN,URINE Negative (NEGATIVE); URINE, BLOOD 1+ (NEGATIVE)
[2016-09-28 10:10] LABS: ADD URINE MICROSCOPIC YES
== END 2016-09-28 09:27 | disposition home or self-care (01) ==
LOC: LAB 09:26 → NONPT 09:27
PROVIDERS: ATTEND Family Medicine
DX: N39.0 Urinary tract infection, site not specified (principal)
CPT/HCPCS: 81001; 87086

== ENCOUNTER 2018-08-23 14:50 | Inpatient (IN) ==
[2018-08-23] MEDS ORDERED: HALDOL IM STA (15:29)
[2018-08-23] MEDS ORDERED: NITROSTAT SL PRN (15:53)
[2018-08-23] MEDS ORDERED: VISTARIL INJ IM PRN (15:53)
[2018-08-23] MEDS ORDERED: ATROPINE SULFATE PFS IVP PRN (15:53)
[2018-08-23] MEDS ORDERED: TYLENOL RC STA (15:57)
[2018-08-23] MEDS ORDERED: TYLENOL PO PRN (15:58)
[2018-08-23] MEDS ORDERED: MILK OF MAGNESIA PO PRN (16:05)
[2018-08-23] MEDS: ROCEPHIN 1 GM in SODIUM CHLORIDE 50 ML IV SCH (16:35)
[2018-08-23] MEDS: SOLU-CORTEF 100 MG IVP SCH ×2 (16:35→21:47)
[2018-08-23] MEDS: SODIUM CHLORIDE 1,000 ML IV SCH (16:35)
[2018-08-23] MEDS: TAMIFLU PO SCH ×2 (16:35→21:51)
--- NOTE | 2018-08-23 16:42 | DI ---
EXAM: Chest one view HISTORY: Cough and shortness of air COMPARISON: None TECHNIQUE: Single view of the chest was performed FINDINGS: Heart is enlarged. Mediastinal contour normal, noting atherosclerosis. No visible pneumo thorax. Bibasilar atelectasis and/or consolidation. No large pleural effusion. Large hiatal hernia . IMPRESSION: 1. Bibasilar atelectasis and/or pneumonia. 2. Cardiomegaly. 3. Large hiatal hernia
[2018-08-23 17:27] VITALS: BMI 24.3
[2018-08-23] MEDS: XOPENEX 1.25 MG NEB SCH (21:15)
[2018-08-23] MEDS: ATIVAN PO SCH (21:44)
[2018-08-24] MEDS: XOPENEX 1.25 MG NEB SCH ×3 (04:55→20:05)
[2018-08-24] MEDS: SYNTHROID PO SCH (05:51)
[2018-08-24] MEDS: SODIUM CHLORIDE 1,000 ML IV SCH (08:50)
[2018-08-24] MEDS: TAMIFLU PO SCH ×2 (08:50→20:09)
[2018-08-24] MEDS: ATIVAN PO SCH ×4 (08:50→20:09)
[2018-08-24] MEDS: ASPIRIN EC PO SCH (08:52)
[2018-08-24] MEDS: ROCEPHIN 1 GM in SODIUM CHLORIDE 50 ML IV SCH (08:53)
[2018-08-24] MEDS: SOLU-CORTEF 100 MG IVP SCH ×2 (09:08→20:46)
--- NOTE | 2018-08-24 10:05 | PCM.PROG ---
Attending Provider: ATTENDING PROVIDER: Dr. SU ALAN DATE OF SERVICE: 08/24/18 SUBJECTIVE: This 88 year old WHITE/ F was hospitalized 08/23/18 with flu type A and pneumonia. The patient had abnormal EKG indicated inferoseptal septal wall AK. EKG is normal today. No change with normal cardiac markers. The patient is not in any distress at all and laying flat. REVIEW OF SYSTEMS: CONSTITUTIONAL: No night sweats. No fatigue, malaise, lethargy. No fever or chills. HEENT: Eyes: No visual changes. No eye pain. No eye discharge. ENT: No runny nose. No epistaxis. No sinus pain. No odynophagia. No congestion. RESPIRATORY: No cough, no congestion. No hemoptysis. No shortness of breath. CARDIOVASCULAR: No angina symptoms. No CHF symptoms. No atypical chest pain for CAD. No palpitations. No orthopnea.. GASTROINTESTINAL: No abdominal pain. No nausea or vomiting. No diarrhea or constipation. No hematemesis. No hematochezia. GENITOURINARY: No urgency. No frequency. No dysuria. No hematuria. No obstructive symptoms. No discharge. No pain. No significant abnormal bleeding. MUSCULOSKELETAL: No musculoskeletal pain; no joint swelling. NEUROLOGICAL: Awake, alert but confused. No headache. No neck pain. No syncope. No seizures. No dizziness. PSYCHIATRIC: Not anxious. No depression. No suicidal thoughts. No homicidal thoughts. SKIN: No rash. No lesions. No wounds. ENDOCRINE: No unexplained weight loss. No weight gain. HEMATOLOGIC/LYMPHATIC: No anemia. No purpura. No petechiae. No prolonged or excessive bleeding. No palpable lymph nodes. PHYSICAL EXAMINATION: GENERAL: The patient is awake, alert but confused, lying flat in bed in no distress. VITAL SIGNS: Temperature 97.9 F, Pulse 75, Respiratory Rate 18, BP 130/84, Pulse Ox 95% HEENT: Head normocephalic, atraumatic. Eyes: Extraocular muscles are intact. Pupils are equal, round and reactive to light and accommodation. Ears: No lesions. Nose appeared normal. Throat: No exudate or erythema. NECK: Supple. No JVD, no carotid bruit. No lymphadenopathy or thyromegaly. LUNGS: Mild wheezing but good air entry. Clear to auscultation. Percussion note normal. Chest symmetrical. HEART: S1, S2, no S3. No murmurs. No cyanosis or clubbing. No ascites. Pulses: Dorsalis pedis and posterior tibial pulses +1 to +2 both sides. ABDOMEN: Soft. Non-tender. Bowel sounds active. No CVA tenderness. No mass felt. EXTREMITIES: No edema. Full range of motion of all extremities, equal. NEUROLOGIC: No focal deficit. Cranial nerves II through XII are grossly intact. No headache, no double vision or headache. SKIN: Warm and dry. Intact. Turgor-normal. LYMPHATIC: No palpable lymph nodes/no lymphedema. MUSCULOSKELETAL: Normal joints with no swelling. Muscle tone is normal. LAB REVIEW: 08/24/18 05:00 08/24/18 05:00 08/24/18 05:00: Sodium 140.2, Potassium 3.76, Chloride 108.5 H, Carbon Dioxide 22.5, Anion Gap 12.96, BUN 17.3 H, Creatinine 0.87, Estimated GFR (MDRD) 61.00, BUN/Creatinine Ratio 19.88, Glucose 113.7 H, Calcium 8.27 L, Total Bilirubin 0.44, AST 40.9 H, ALT 17.7, Alkaline Phosphatase < 20.0 L, Total Protein 6.69, Albumin 4.02, Globulin 2.67, Albumin/Globulin Ratio 1.50 08/24/18 05:00: WBC 8.83, RBC 4.07 L, Hgb 12.8, Hct 39.6, MCV 97.3, MCH 31.4 H, MCHC 32.3, RDW Coeff of Roshan 13.2, Plt Count 162, Immature Gran % (Auto) 0.3, Neut % (Auto) 52.8, Lymph % (Auto) 37.9, Isabella % (Auto) 8.7, Eos % (Auto) 0.1, Baso % (Auto) 0.2, Immature Gran # (Auto) 0.0, Neut # (Auto) 4.7, Lymph # (Auto ) 3.4, Isabella # (Auto) 0.8, Eos # (Auto) 0.0, Baso # (Auto) 0.0 08/24/18 00:12: Total Creatine Kinase 147.7 H, CK-MB (CK-2) 0.548, CK-MB (CK-2) % 0.3700, Troponin I 0.022 08/23/18 16:27: Sodium 138.5, Potassium 3.89, Chloride 105.4, Carbon Dioxide 24.0, Anion Gap 12.99, BUN 14.9, Creatinine 1.14, Estimated GFR (MDRD) 45.00, BUN/Creatinine Ratio 13.07, Glucose 110.2 H, Calcium 8.89, Total Bilirubin 0.65 , AST 39.7 H, ALT 16.7, Alkaline Phosphatase 23.2 L, Total Creatine Kinase 116.3 , CK-MB (CK-2) < 0.220, CK-MB (CK-2) % 0.1800, Troponin I 0.023, Total Protein 7.23, Albumin 4.37, Globulin 2.86, Albumin/Globulin Ratio 1.52 08/23/18 16:27: WBC 9.40, RBC 4.22, Hgb 13.4, Hct 41.0, MCV 97.2, MCH 31.8 H, MCHC 32.7, RDW Coeff of Roshan 13.1, Plt Count 163, Immature Gran % (Auto) 0.1, Neut % (Auto) 60.0, Lymph % (Auto) 29.8, Isabella % (Auto) 9.6, Eos % (Auto) 0.1, Baso % (Auto) 0.4, Immature Gran # (Auto) 0.0, Neut # (Auto) 5.6, Lymph # (Auto ) 2.8, Isabella # (Auto) 0.9, Eos # (Auto) 0.0, Baso # (Auto) 0.0 08/23/18 16:00: Puncture Site Rb, O2 Saturation 87.0 L, ABG pH 7.445, ABG pCO2 29.5 L, ABG pO2 50.0 L*, ABG HCO3 20.2 L, ABG Total CO2 21 L, ABG Base Excess - 4 L, FiO2 % 21.0 08/23/18 15:04: Influ A Molecular Assay Positive by naat H, Influ B Molecular Assay Negative by naat ASSESSMENT: Please see below. 1. Flu A positive 2. Pneumonitis 3. Dementia 4. Chronic anemia PLAN: 1. Continue antibiotics 2. Tamiflu 3. Not wanting to keep telemetry on 4. 100 Solu-Cortef Q 12 hours 5. IV 75cc for 24 more hours. Plan and coordination of the patient's care discussed in the presence of Piano Mechanic Apprentice and nurse. SCRIBED BY: Vernell SNEED scribed while in presence of service performed by Dr. SU ALAN on 08/24/18 ([id number])
[2018-08-24] MEDS: HALDOL IM PRN (20:10)
[2018-08-25] MEDS: XOPENEX 1.25 MG NEB SCH ×3 (04:20→20:20)
[2018-08-25] MEDS: SYNTHROID PO SCH (05:50)
[2018-08-25] MEDS: ASPIRIN EC PO SCH (08:20)
[2018-08-25] MEDS: HALDOL IM PRN ×2 (08:20→20:31)
[2018-08-25] MEDS: ATIVAN PO SCH ×3 (08:20→20:30)
[2018-08-25] MEDS: TAMIFLU PO SCH ×2 (08:20→20:30)
[2018-08-25] MEDS: SODIUM CHLORIDE 1,000 ML IV SCH (08:21)
[2018-08-25] MEDS ORDERED: ROCEPHIN 1 GM in SODIUM CHLORIDE 50 ML IM SCH (12:00)
[2018-08-25] MEDS ORDERED: ROCEPHIN ONE (12:05)
[2018-08-25] MEDS ORDERED: LIDOCAINE HCL 1% SDV ONE (12:07)
[2018-08-25] MEDS: SOLU-CORTEF 100 MG IM SCH ×2 (12:17→20:30)
[2018-08-25] MEDS: ROCEPHIN 1 GM in SODIUM CHLORIDE 50 ML IV SCH (12:18)
[2018-08-25] MEDS: SOLU-CORTEF 100 MG IVP SCH (12:18)
[2018-08-26] MEDS: XOPENEX 1.25 MG NEB SCH ×3 (04:35→20:20)
[2018-08-26] MEDS: SYNTHROID PO SCH (05:42)
[2018-08-26] MEDS: ASPIRIN EC PO SCH (08:09)
[2018-08-26] MEDS: ATIVAN PO SCH ×3 (08:09→20:31)
[2018-08-26] MEDS: ROCEPHIN IM SCH (08:10)
[2018-08-26] MEDS: TAMIFLU PO SCH ×2 (08:10→20:32)
[2018-08-26] MEDS: LIDOCAINE HCL 1% SDV IM SCH (08:10)
[2018-08-26] MEDS: SOLU-CORTEF 100 MG IM SCH ×2 (08:10→20:35)
[2018-08-26] MEDS: K-DUR PO SCH (17:14)
[2018-08-26] MEDS: HALDOL IM PRN (20:33)
[2018-08-27] MEDS: XOPENEX 1.25 MG NEB SCH ×3 (04:30→19:40)
[2018-08-27] MEDS: SYNTHROID PO SCH (05:42)
[2018-08-27] MEDS ORDERED: HALDOL PO PRN (09:33)
[2018-08-27] MEDS: K-DUR PO SCH ×4 (10:38→17:57)
[2018-08-27] MEDS: ATIVAN PO SCH ×3 (10:39→20:22)
[2018-08-27] MEDS: OMNICEF PO SCH ×2 (10:39→20:22)
[2018-08-27] MEDS: ASPIRIN EC PO SCH (10:40)
[2018-08-27] MEDS: TAMIFLU PO SCH ×2 (10:41→20:23)
[2018-08-27] MEDS: PREDNISONE PO SCH (10:41)
[2018-08-27] MEDS: LIDOCAINE HCL 1% SDV IM SCH (11:26)
[2018-08-27] MEDS: ROCEPHIN IM SCH (11:27)
[2018-08-27] MEDS: SOLU-CORTEF 100 MG IM SCH (11:27)
--- NOTE | 2018-08-27 13:41 | HP ---
DATE OF SERVICE: 08/23/18 REASON FOR HOSPITALIZATION/HISTORY OF PRESENT ILLNESS: The patient has positive Flu A at [facility]. She has coughing and shortness of breath. 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 HEENT: Sinus drainage, no sore throat. RESPIRATORY: Cough, no congestion. CARDIOVASCULAR: No atypical chest pain for coronary artery disease. No angina , CHF symptoms, palpitations. Shortness of breath. GASTROINTESTINAL: No melena or abdominal pain. No GERD. GENITOURINARY: No hematuria, no prostatism, no polyuria. SENIOR STAFF ACCOUNTANT: No blackout, no dizziness, no headache, no double vision. MUSCULOSKELETAL: Osteoarthritis pain, no joint swelling. ENDOCRINE: No weight loss, no weight gain. SKIN: Not dry, no rash. PSYCHIATRIC: Not anxious, no depression, no suicidal thoughts, no homicidal thoughts. SOCIAL HISTORY: Marital Status: . Alcohol Usage: No. Tobacco Usage: No. FAMILY HISTORY: The patient is confused about unable to give MEDICATIONS: Synthroid 100mcg PO daily Ativan 0.5mg PO three times a day Mapap 650mg PO Q 4 hours PRN Mild of magnesia 30ml PO Q 72 hours PRN ALLERGIES: NSAIDS PHYSICAL EXAMINATION: V/S: Temperature 101.5 and oxygen saturation 95%. GENERAL APPEARANCE: Not oriented. HEENT: Yellow drainage. NECK: No JVP, no bruits. RESPIRATORY: Decreased breath sounds expiratory. CARDIOVASCULAR: S1, S2, no S3, no murmurs. No cyanosis, clubbing. No ascites. GI/ABDOMEN: No tenderness. Bowel sounds are active. EXTREMITIES: edema, pulses +1, equal. SENIOR STAFF ACCOUNTANT: Deep tendon reflexes, sensory, motor and gait all normal. RECTAL/PELVIC/PROSTATE: . ASSESSMENT: 1. Flu A 2. Shortness of breath 3. Dehydration PLAN: 1. Admit 2. Normal saline at 75cc IV 3. Routine telemetry orders 4. CBC and CMP now and aily 5. Rapid Flu A and B 6. Tylenol 500mg PO Q 4 hours PRN fever more than 100. 7. Started Rocephin 1gram IV daily 8. Solu-Cortef 100mg IV Q 12 hours 9. Xopenex NEBS three times a day scheduled 10.ABG on Room air 11.O2 at 1-2 liters PRN 12.Tamiflu 75mg PO twice a day times 5 days 13.Chest x-ray 14.U/A 15.Regular diet 16.Continue home medications. TIME SPENT: More than 70 minutes. MTDD
[2018-08-28] MEDS: XOPENEX 1.25 MG NEB SCH ×2 (04:20→14:13)
[2018-08-28] MEDS: SYNTHROID PO SCH (05:30)
[2018-08-28 06:11] VITALS: BP 144/88; TEMP 98.1
--- NOTE | 2018-08-28 09:04 | PCM.PROG ---
Attending Provider: ATTENDING PROVIDER: Dr. SU ALAN DATE OF SERVICE: 08/27/18 SUBJECTIVE: This 88 year old WHITE/ F was hospitalized 08/23/18 with Influenza A, cough, congestion, shortness of breath and dehydration. The patient has hypokalemia is going to be on K-Dur daily. Appetite is acceptable. No cough, congestion or shortness of breath. REVIEW OF SYSTEMS: CONSTITUTIONAL: No night sweats. No fatigue, malaise, lethargy. No fever or chills. HEENT: Eyes: No visual changes. No eye pain. No eye discharge. ENT: No runny nose. No epistaxis. No sinus pain. No odynophagia. No congestion. RESPIRATORY: No cough, no congestion. No hemoptysis. No shortness of breath. CARDIOVASCULAR: No angina symptoms. No CHF symptoms. No atypical chest pain for CAD. No palpitations. No orthopnea.. GASTROINTESTINAL: No abdominal pain. No nausea or vomiting. No diarrhea or constipation. No hematemesis. No hematochezia. GENITOURINARY: No urgency. No frequency. No dysuria. No hematuria. No obstructive symptoms. No discharge. No pain. No significant abnormal bleeding. MUSCULOSKELETAL: No musculoskeletal pain; no joint swelling. NEUROLOGICAL: Awake, alert, oriented to time, place and person. No headache. No neck pain. No syncope. No seizures. No dizziness. PSYCHIATRIC: Not anxious. No depression. No suicidal thoughts. No homicidal thoughts. SKIN: No rash. No lesions. No wounds. ENDOCRINE: No unexplained weight loss. No weight gain. HEMATOLOGIC/LYMPHATIC: No anemia. No purpura. No petechiae. No prolonged or excessive bleeding. No palpable lymph nodes. PHYSICAL EXAMINATION: GENERAL: The patient is awake, alert and oriented, sitting in chair in no distress. VITAL SIGNS: Temperature 97.9 F, Pulse 82, Respiratory Rate 16, BP 124/82, Pulse Ox 98% HEENT: Head normocephalic, atraumatic. Eyes: Extraocular muscles are intact. Pupils are equal, round and reactive to light and accommodation. Ears: No lesions. Nose appeared normal. Throat: No exudate or erythema. NECK: Supple. No JVD, no carotid bruit. No lymphadenopathy or thyromegaly. LUNGS: Decreased breath sounds. Clear to auscultation. Percussion note normal. Chest symmetrical. HEART: S1, S2, no S3. No murmurs. No cyanosis or clubbing. No ascites. Pulses: Dorsalis pedis and posterior tibial pulses +1 to +2 both sides. ABDOMEN: Soft. Non-tender. Bowel sounds active. No CVA tenderness. No mass felt. EXTREMITIES: No edema. Full range of motion of all extremities, equal. NEUROLOGIC: No focal deficit. Cranial nerves II through XII are grossly intact. No headache, no double vision or headache. SKIN: Warm and dry. Intact. Turgor-normal. LYMPHATIC: No palpable lymph nodes/no lymphedema. MUSCULOSKELETAL: Normal joints with no swelling. Muscle tone is normal. LAB REVIEW: 08/27/18 04:20 08/27/18 04:20 08/27/18 04:20: Sodium 139.1, Potassium 3.06 L, Chloride 107.0, Carbon Dioxide 25.1, Anion Gap 10.06, BUN 18.0 H, Creatinine 0.59 L, Estimated GFR (MDRD) 96.00 , BUN/Creatinine Ratio 30.50, Glucose 109.2 H, Calcium 8.23 L, Total Bilirubin 0.55, AST 51.0 H, ALT 29.0, Alkaline Phosphatase 20.7 L, Total Protein 6.65, Albumin 4.06, Globulin 2.59, Albumin/Globulin Ratio 1.56 08/27/18 04:20: WBC 9.79, RBC 3.92 L, Hgb 12.3, Hct 37.6, MCV 95.9, MCH 31.4 H, MCHC 32.7, RDW Coeff of Roshan 13.2, Plt Count 153, Immature Gran % (Auto) 0.3, Neut % (Auto) 55.6, Lymph % (Auto) 39.1, [place] % (Auto) 4.9, Eos % (Auto) 0.0, Baso % (Auto) 0.1, Immature Gran # (Auto) 0.0, Neut # (Auto) 5.4, Lymph # (Auto ) 3.8 H, [place]ift # (Auto) 0.5, Eos # (Auto) 0.0, Baso # (Auto) 0.0 ASSESSMENT: 1. Flu A with bronchitis seems to be resolving. 2. Dementia. 3. Dehydration subsided. 4. Hypokalemia. PLAN: 1. Continue same management and most medications converted to p.o. as mentioned above. 2. Haldol 20 mg p.o. 3. Prednisone 20 mg daily p.o. times 5 days. 4. Omnicef 300 mg daily p.o. b.i.d. 5. D/C Rocephin. 6. D/C Solu-Cortef. 7. K-Dur 20 mEq daily t.i.d. Plan and coordination of the patient's care discussed in the presence of Planer Hand and nurse. CONDITION: Stable SCRIBED BY: KERLINE ESTRELLA Molder Meat scribed while in presence of service performed by Dr. SU ALAN on 08/27/18 ([id number])
[2018-08-28] MEDS: OMNICEF PO SCH (09:08)
[2018-08-28] MEDS: ATIVAN PO SCH ×2 (09:08→13:59)
[2018-08-28] MEDS: PREDNISONE PO SCH (09:08)
[2018-08-28] MEDS: ASPIRIN EC PO SCH (09:08)
[2018-08-28] MEDS: TAMIFLU PO SCH (09:08)
[2018-08-28] MEDS: K-DUR PO SCH ×2 (09:09→12:06)
--- NOTE | 2018-08-28 09:14 | PCM.PROG ---
Attending Provider: ATTENDING PROVIDER: Dr. SU ALAN DATE OF SERVICE: 08/28/18 SUBJECTIVE: This 88 year old WHITE/ F was hospitalized 08/23/18 with influenza A, shortness of breath and dehydration. The patient's condition is stable. She is not coughing. No symptoms of CHF or coronary insufficiency. REVIEW OF SYSTEMS: CONSTITUTIONAL: No night sweats. No fatigue, malaise, lethargy. No fever or chills. HEENT: Eyes: No visual changes. No eye pain. No eye discharge. ENT: No runny nose. No epistaxis. No sinus pain. No odynophagia. No congestion. RESPIRATORY: No cough, no congestion. No hemoptysis. No shortness of breath. CARDIOVASCULAR: No angina symptoms. No CHF symptoms. No atypical chest pain for CAD. No palpitations. No orthopnea.. GASTROINTESTINAL: No abdominal pain. No nausea or vomiting. No diarrhea or constipation. No hematemesis. No hematochezia. GENITOURINARY: No urgency. No frequency. No dysuria. No hematuria. No obstructive symptoms. No discharge. No pain. No significant abnormal bleeding. MUSCULOSKELETAL: No musculoskeletal pain; no joint swelling. NEUROLOGICAL: Awake, alert but confused. No headache. No neck pain. No syncope. No seizures. No dizziness. PSYCHIATRIC: Not anxious. No depression. No suicidal thoughts. No homicidal thoughts. SKIN: No rash. No lesions. No wounds. ENDOCRINE: No unexplained weight loss. No weight gain. HEMATOLOGIC/LYMPHATIC: No anemia. No purpura. No petechiae. No prolonged or excessive bleeding. No palpable lymph nodes. PHYSICAL EXAMINATION: GENERAL: The patient is awake, alert but confused, lying in bed in no distress. VITAL SIGNS: Temperature 98.1 F, Pulse 69, Respiratory Rate 17, BP 144/88, Pulse Ox 95% HEENT: Head normocephalic, atraumatic. Eyes: Extraocular muscles are intact. Pupils are equal, round and reactive to light and accommodation. Ears: No lesions. Nose appeared normal. Throat: No exudate or erythema. NECK: Supple. No JVD, no carotid bruit. No lymphadenopathy or thyromegaly. LUNGS: Clear to auscultation. Percussion note normal. Chest symmetrical. HEART: S1, S2, no S3. No murmurs. No cyanosis or clubbing. No ascites. Pulses: Dorsalis pedis and posterior tibial pulses +1 to +2 both sides. ABDOMEN: Soft. Non-tender. Bowel sounds active. No CVA tenderness. No mass felt. EXTREMITIES: No edema. Full range of motion of all extremities, equal. NEUROLOGIC: No focal deficit. Cranial nerves II through XII are grossly intact. No headache, no double vision or headache. SKIN: Warm and dry. Intact. Turgor-normal. LYMPHATIC: No palpable lymph nodes/no lymphedema. MUSCULOSKELETAL: Normal joints with no swelling. Muscle tone is normal. LAB REVIEW: 08/28/18 05:00 08/28/18 05:00 08/28/18 05:00: Sodium 140.3, Potassium 3.05 L, Chloride 107.2 H, Carbon Dioxide 26.4, Anion Gap 9.75, BUN 20.1 H, Creatinine 0.65, Estimated GFR (MDRD) 86.00, BUN/Creatinine Ratio 30.92, Glucose 87.0, Calcium 8.39 L, Total Bilirubin 0.67, AST 47.9 H, ALT 33.2, Alkaline Phosphatase < 20.0 L, Total Protein 6.48, Albumin 3.80, Globulin 2.68, Albumin/Globulin Ratio 1.41 08/28/18 05:00: WBC 10.81 H, RBC 3.93 L, Hgb 12.3, Hct 37.6, MCV 95.7, MCH 31.3 H, MCHC 32.7, RDW Coeff of Roshan 13.2, Plt Count 166, Immature Gran % (Auto) 0.5, Neut % (Auto) 40.6, Lymph % (Auto) 51.9 H, [place] % (Auto) 6.8, Eos % (Auto) 0.1, Baso % (Auto) 0.1, Immature Gran # (Auto) 0.1, Neut # (Auto) 4.4, Lymph # (Auto ) 5.6 H, [place] # (Auto) 0.7, Eos # (Auto) 0.0, Baso # (Auto) 0.0 ASSESSMENT: Please see below. 1. Acute bronchitis 2. Influenza A 3. Dehydration All seem to be under control PLAN: 1. D/C back to [facility]. 2. Labs in 7 days then monthly. 3. Continue Omnicef. 4. Continue Prednisone. 5. Potassium 20 mEq t.i.d. times five days. Plan and coordination of the patient's care discussed in the presence of Fence Making Machine Operator and nurse. CONDITION: Stable SCRIBED BY: KERLINE ESTRELLA Dial Printer scribed while in presence of service performed by Dr. SU ALAN on 08/28/18 ([id number])
--- NOTE | 2018-08-28 11:11 | CM.DICTOOL ---
ADMISSION: 08/23/18 14:50 DISCHARGE: AUGUST 28, 2018 DATE OF SERVICE: 08/28/18 FINAL DIAGNOSIS FLU A SHORTNESS OF BREATH DEHYDRATION HYPOKALEMIA HYPOTHYROID HISTORY OF GI BLEED, 2011 (TRANSFUSION) ANEMIA HISTORY OF CVA ALZHEMIER'S ANEXIETY HIATAL HERNIA, LARGE PER CXR BILATERAL MASTECTOMY HYSTERECTOMY LAST VITALS Temp Pulse Resp BP Pulse Ox 98.1 F 69 17 144/88 H 95 08/28/18 06:00 08/28/18 06:00 08/28/18 06:00 08/28/18 06:00 08/28/18 06:00 TAKE THESE MEDICATIONS AT HOME Acetaminophen (Tylenol) 500 mg PO Q4H PRN PRN Reason: fever > 100 Cefdinir (Omnicef) 300 mg PO Q12HR [facility] FOR 5 DAYS, STARTED 08-27-2018 Last Admin: 08/28/18 09:08 Dose: 300 mg Levothyroxine Sodium (Synthroid) 100 mcg PO QDAC [facility] Last Admin: 08/28/18 05:30 Dose: 100 mcg Lorazepam (Ativan) 0.5 mg PO BID [facility] Last Admin: 08/28/18 09:08 Dose: 0.5 mg Magnesium Hydroxide (Milk Of Magnesia) 30 ml PO Q72HR PRN Oseltamivir Phosphate (Tamiflu) 75 mg PO Q12HR [facility] Stop: 08/28/18 16:29 Last Admin: 08/28/18 09:08 Dose: 75 mg Potassium Chloride (K-Dur) 20 meq PO TIDWM [facility] Last Admin: 08/28/18 09:09 Dose: 20 meq FOR 5 DAYS Prednisone (Prednisone) 20 mg PO DAILYWM [facility] Last Admin: 08/28/18 09:08 Dose: 20 mg FOR 5 DAYS, STARTED 08-27-2018 ALLERGIES NSAIDS (Non-Steroidal Anti-Inflamma Adverse Reaction (Verified 03/01/13 21:55) MEDICATION CHANGES DECREASE ATIVAN TO BID NEW PRESCRIPTIONS: OMNICEF 300 MG PO BID FOR 5 DAYS, STARTED ON 08-27-2018 K- DUR 20 MEQ TID WITH MEALS FOR 5 DAYS, STARTED 08-27-2018 PREDNISONE 20 MG DAILY WITH MEALS FOR 5 DAYS, STARTE 08-27-2018 SMOKING: NOT APPLICABLE DISEASE SPECIFIC EDUCATION: NOT APPLICABLE DUE TO PATIENT CONFUSION LAB REVIEW: 08/28/18 05:00 08/28/18 05:00 08/28/18 05:00: Sodium 140.3, Potassium 3.05 L, Chloride 107.2 H, Carbon Dioxide 26.4, Anion Gap 9.75, BUN 20.1 H, Creatinine 0.65, Estimated GFR (MDRD) 86.00, BUN/Creatinine Ratio 30.92, Glucose 87.0, Calcium 8.39 L, Total Bilirubin 0.67, AST 47.9 H, ALT 33.2, Alkaline Phosphatase < 20.0 L, Total Protein 6.48, Albumin 3.80, Globulin 2.68, Albumin/Globulin Ratio 1.41 08/28/18 05:00: WBC 10.81 H, RBC 3.93 L, Hgb 12.3, Hct 37.6, MCV 95.7, MCH 31.3 H, MCHC 32.7, RDW Coeff of Roshan 13.2, Plt Count 166, Immature Gran % (Auto) 0.5, Neut % (Auto) 40.6, Lymph % (Auto) 51.9 H, Major % (Auto) 6.8, Eos % (Auto) 0.1, Baso % (Auto) 0.1, Immature Gran # (Auto) 0.1, Neut # (Auto) 4.4, Lymph # (Auto ) 5.6 H, Major # (Auto) 0.7, Eos # (Auto) 0.0, Baso # (Auto) 0.0 PLAN: DISCHARGE TO [facility] DIET: RESUME TOLERATED ACTIVITY: RESUME TOLERATED FLU PRECAUTIONS PER [facility] PROTOCOL CBC, CMP IN 7 DAYS, THEN MONTHLY TSH, LIPIDS EVERY 6 MONTHS VITAL SIGNS DAILY FOR 1 WEEK, THEN WEEKLY PATIENT IS A DNR TOMÁS ALVAREZ APRN TO SEE PATIENT ON [facility] ROUNDS IN 7-10 DAYS MS. SALDAÑA IS ALERT TO PERSON ONLY. SHE IS PLEASANTLY CONFUSED. SHE IS ABLE TO FEED HERSELF AND DISPLAYS A FAIR APPETITE AT 50-75%. SHE IS IMPULSIVE WITH ACTIVITY AND OFTEN EXITS THE CHAIR OR BED WITHOUT ASSISTANCE OF THE NURSING STAFF. SHE REQUIRES ASSISTANCE OF 1 STAFF MEMBER WITH AMBULATION DUE TO UNSTEADY GAIT. SHE HAS REQUIRED ONE ON ONE SUPERVISION AT TIMES TO PREVENT WANDERING. SHE IS INCONTINENT AT TIMES AND WEARS DEPENDS UNDERGARMENTS. SHE WILL OFTEN GO TO THE BATHROOM FOR ELIMINATION IF ASSISTED BY NURSING. SKIN IS IN INTACT. BRUISING IS NOTED TO BOTH ARMS. SU ALAN MD
--- NOTE | 2018-08-28 11:31 | PN ---
DATE OF SERVICE: 08/23/18 SUBJECTIVE: The patient was admitted directed from the snf with having Influenza A and B positive. The patient has bilateral pneumonia. The patient is being treated with IV antibiotics and steroids. The patient is DNR. The patient was seen and examined with Nurse Practitioner and the orders were given. TIME SPENT: More than 30 minutes. Plan and coordination of the patient's care discussed in the presence of nurse. AMAIRANI
--- NOTE | 2018-08-28 11:49 | PN ---
DATE OF SERVICE: 08/25/18 SUBJECTIVE: This patient this morning has been confused but alert. She doesn't know where she is, date or person. She has been requiring Haldol 1mg Q 8 hours for her to settle down. She is also on Ativan. One dose extra of Haldol will be given. REVIEW OF SYSTEMS: CONSTITUTIONAL: No night sweats. No fatigue, malaise, lethargy. No fever or chills. HEENT: Eyes: No visual changes. No eye pain. No eye discharge. ENT: No runny nose. No epistaxis. No sinus pain. No sore throat. No odynophagia. No congestion. RESPIRATORY: No cough, no congestion. No hemoptysis. No shortness of breath. CARDIOVASCULAR: No angina symptoms. No CHF symptoms. No atypical chest pain for CAD. No palpitations. No PND. No orthopnea. GASTROINTESTINAL: No abdominal pain. No nausea or vomiting. No diarrhea or constipation. No hematemesis. No hematochezia. Appetite acceptable. GENITOURINARY: No urgency. No frequency. No dysuria. No hematuria. No obstructive symptoms. No discharge. No pain. No significant abnormal bleeding. MUSCULOSKELETAL: No musculoskeletal pain; no joint swelling. NEUROLOGICAL: No headache. No neck pain. No syncope. No seizures. No dizziness. PSYCHIATRIC: Not anxious. No depression. No suicidal thoughts. No homicidal thoughts. SKIN: No rash. No lesions. No wounds. ENDOCRINE: No unexplained weight loss. No weight gain. HEMATOLOGIC/LYMPHATIC: No anemia. No purpura. No petechiae. No prolonged or excessive bleeding. No palpable lymph nodes. PHYSICAL EXAMINATION: VITAL SIGNS: All stable. HEENT: Head normocephalic, atraumatic. Eyes: Extraocular muscles are intact. Pupils are equal, round and reactive to light and accommodation. Ears: No lesions. Nose appeared normal. Throat: No exudate or erythema. NECK: Supple. No JVD, no carotid bruit. No lymphadenopathy or thyromegaly. LUNGS: Clear to auscultation. Percussion note normal. Chest symmetrical. HEART: S1, S2, no S3. No murmurs. No cyanosis or clubbing. No ascites. Pulses: Dorsalis pedis and posterior tibial pulses +1 to +2 bilaterally. ABDOMEN: Soft. Nontender. Bowel sounds active. No CVA tenderness. No mass felt. EXTREMITIES: No edema. Full range of motion of all extremities, equal. NEUROLOGIC: No focal deficit. Cranial nerves II through XII are grossly intact. No headache, no double vision or headache. SKIN: Not dry. Intact. Turgor - normal. LYMPHATIC: No palpable lymph nodes/no lymphedema. MUSCULOSKELETAL: Normal joints with no swelling. Muscle tone is normal. ASSESSMENT: 1. Influenza Positive. PLAN: 1. She has pulled out all her IV's so IV will be discontinued 2. All of her other medications she will be given IM incase like Solu-Cortef CONDITION: Improving. Respiratory status stable. TIME SPENT: More than 30 minutes. Plan and coordination of the patient's care discussed in the presence of nurse. AMAIRANI
--- NOTE | 2018-08-28 12:45 | PN ---
DATE OF SERVICE: 08/26/18 SUBJECTIVE: 88 year old white female hospitalized with influenza type A. The patient's condition has improved. She is confused but she is eating much better. She is not keeping the IV. IV is off. She is getting IM Solu-Cortef. REVIEW OF SYSTEMS: CONSTITUTIONAL: No night sweats. No fatigue, malaise, lethargy. No fever or chills. HEENT: Eyes: No visual changes. No eye pain. No eye discharge. ENT: No runny nose. No epistaxis. No sinus pain. No sore throat. No odynophagia. No congestion. RESPIRATORY: No cough, no congestion. No hemoptysis. No shortness of breath. CARDIOVASCULAR: No angina symptoms. No CHF symptoms. No atypical chest pain for CAD. No palpitations. No PND. No orthopnea. GASTROINTESTINAL: No abdominal pain. No nausea or vomiting. No diarrhea or constipation. No hematemesis. No hematochezia. GENITOURINARY: No urgency. No frequency. No dysuria. No hematuria. No obstructive symptoms. No discharge. No pain. No significant abnormal bleeding. MUSCULOSKELETAL: No musculoskeletal pain; no joint swelling. NEUROLOGICAL: No headache. No neck pain. No syncope. No seizures. No dizziness. PSYCHIATRIC: Not anxious. No depression. No suicidal thoughts. No homicidal thoughts. SKIN: No rash. No lesions. No wounds. ENDOCRINE: No unexplained weight loss. No weight gain. HEMATOLOGIC/LYMPHATIC: No anemia. No purpura. No petechiae. No prolonged or excessive bleeding. No palpable lymph nodes. PHYSICAL EXAMINATION: VITAL SIGNS: Temperature 98, pulse 82, respiratory rate 20, blood pressure 147/ 89 and pulse ox 95%. HEENT: Head normocephalic, atraumatic. Eyes: Extraocular muscles are intact. Pupils are equal, round and reactive to light and accommodation. Ears: No lesions. Nose appeared normal. Throat: No exudate or erythema. NECK: Supple. No JVD, no carotid bruit. No lymphadenopathy or thyromegaly. LUNGS: Decreased breath sounds but clear to auscultation. Percussion note normal. Chest symmetrical. HEART: S1, S2, no S3. No murmurs. No cyanosis or clubbing. No ascites. Pulses: Dorsalis pedis and posterior tibial pulses +1 to +2 bilaterally. ABDOMEN: Soft. Nontender. Bowel sounds active. No CVA tenderness. No mass felt. EXTREMITIES: No edema. Full range of motion of all extremities, equal. NEUROLOGIC: No focal deficit. Cranial nerves II through XII are grossly intact. No headache, no double vision or headache. SKIN: Not dry. Intact. Turgor - normal. LYMPHATIC: No palpable lymph nodes/no lymphedema. MUSCULOSKELETAL: Normal joints with no swelling. Muscle tone is normal. LABS: Hgb 11.9, hct 36, WBC 8,500 normal differential, potassium 3.1. ASSESSMENT: 1. Influenza A with bronchitis seems to be improving 2. Dehydration, seems to be resolving 3. Hypokalemia, will monitor it. She is on Potassium supplements 4. Dementia, Stable. PLAN: 1. Potassium supplements given, K-Dur 20meq daily CONDITION: Stable. TIME SPENT: More than 30 minutes. Plan and coordination of the patient's care discussed in the presence of nurse. AMAIRANI
--- NOTE | 2018-08-29 10:30 | DS ---
DATE OF SERVICE: 08/28/18 FINAL DIAGNOSIS: FLU A SHORTNESS OF BREATH DEHYDRATION HYPOKALEMIA HYPOTHYROID HISTORY OF GI BLEED, 2011 (TRANSFUSION) ANEMIA HISTORY OF CVA ALZHEIMER'S ANXIETY HIATAL HERNIA, LARGE PER CXR BILATERAL MASTECTOMY HYSTERECTOMY LAST VITALS: Temp Pulse Resp BP Pulse Ox 98.1 F 69 17 144/88 H 95 08/28/18 06:00 08/28/18 06:00 08/28/18 06:00 08/28/18 06:00 08/28/18 06:00 DISCHARGE INSTRUCTIONS: DISCHARGE TO [facility]. FLU PRECAUTIONS PER INTERMEDIATE PROTOCOL. CBC, CMP IN 7 DAYS, THEN MONTHLY. TSH, LIPIDS EVERY 6 MONTHS. VITAL SIGNS DAILY FOR 1 WEEK, THEN WEEKLY. PATIENT IS A DNR. TOMÁS ALVAREZ APRN TO SEE PATIENT ON INTERMEDIATE ROUNDS IN 7-10 DAYS. TAKE THESE MEDICATIONS AT HOME: Acetaminophen (Tylenol) 500 mg PO Q4H PRN Cefdinir (Omnicef) 300 mg PO Q12HR WALTER Levothyroxine Sodium (Synthroid) 100 mcg PO QDAC WALTER Lorazepam (Ativan) 0.5 mg PO BID WALTER Magnesium Hydroxide (Milk Of Magnesia) 30 ml PO Q72HR PRN Oseltamivir Phosphate (Tamiflu) 75 mg PO Q12HR WALTER Potassium Chloride (K-Dur) 20 meq PO TIDWM WALTER Prednisone (Prednisone) 20 mg PO DAILYWM WALTER ALLERGIES: NSAIDS (Non-Steroidal Anti-Inflammatory Adverse Reaction (Verified 03/01/13 21: 55) MEDICATION CHANGES: DECREASE ATIVAN TO BID NEW PRESCRIPTIONS: OMNICEF 300 MG PO BID FOR 5 DAYS, STARTED ON 08-27-2018 K- DUR 20 MEQ TID WITH MEALS FOR 5 DAYS, STARTED 08-27-2018 PREDNISONE 20 MG DAILY WITH MEALS FOR 5 DAYS, STARTED 08-27-2018 SMOKING: NOT APPLICABLE DISEASE SPECIFIC EDUCATION: NOT APPLICABLE DUE TO PATIENT CONFUSION DIET: RESUME TOLERATED ACTIVITY: RESUME TOLERATED HOSPITAL COURSE: Mrs. Cardenas was hospitalized with Influenza A positive. The patient was treated in the hospital for dehydration with steroids and antibiotics. The patient's condition improved. Her physical exam at the time of discharged lungs were clear, she was afebrile and no symptoms of CHF.On admission the EKG had questionable inferoseptal wall MS. On following EKG's that were done practically normal. The patient had no chest pain and never had sweating. Telemetry went unchanged. Condition at the time of discharge is stable. The patient is a DNR. TIME SPENT: More than 60 minutes. AMAIRANI
--- NOTE | 2018-08-29 10:31 | PN ---
08/23/18: Level 5 08/24/18: Intermediate 08/25/18: Intermediate 08/26/18: Intermediate 08/27/18: Intermediate 08/28/18: D as in discharge MTDD
== END 2018-08-28 15:35 | DRG 153 ==
LOC: MEDSURG B 14:50 → SCU 08-24 18:30
PROVIDERS: ADMIT Internal Medicine; ATTEND Internal Medicine
DX: J11.1 Influenza due to unidentified influenza virus with other respiratory manifestations (principal); J18.9 Pneumonia, unspecified organism; E86.0 Dehydration; E87.6 Hypokalemia; E03.9 Hypothyroidism, unspecified; D64.9 Anemia, unspecified; G30.9 Alzheimer's disease, unspecified; F02.80 Dementia in other diseases classified elsewhere, unspecified severity, without behavioral disturbance, psychotic disturbance, mood disturbance, and anxiety; F41.9 Anxiety disorder, unspecified; Z86.73 Personal history of transient ischemic attack (TIA), and cerebral infarction without residual deficits
CPT/HCPCS: 36415; 80053; 82550; 82553; 82803; 84484; 85025; 87081; 87502; 93005; 93010; 94640